=== PATIENT | female | born 1970 | race Caucasian/White ===

== ENCOUNTER 2019-01-02 08:58 | Emergency (ER) | payer BC ==
[2019-01-02 09:24] VITALS: BP 124/90
--- NOTE | 2019-01-02 09:34 | UC ---
Hypertension HPI - HPI Summary HPI Summary: 48-year-old female who was playing with her granddaughter last evening when she took her blood pressure and it was 165's systolic she can't remember the diastolic. She rechecked it again this morning and it was 170/100 in her left arm, and her insisted she be rechecked today. She has no history of hypertension. She denies any symptoms of illness. No weakness, no chest pain, no difficulty breathing, no difficulty speaking. Her last appointment with her primary care provider was one year ago when she states everything was normal at that time. - History of Current Complaint Chief Complaint: UCGeneralIllness Stated Complaint: BP ISSUE Time Seen by Provider: 01/02/19 09:07 Hx Obtained From: Patient Hx Last Menstrual Period: iud ?: No Onset/Duration: Other - Patient rechecked it last evening and this morning and it was still elevated. Reported Blood Pressure Prior To Arrival:: see above notes. Aggravating Factor(s): Nothing Alleviating Factor(s): Nothing Associated Signs And Symptoms: Positive: Negative - Allergies/Home Medications Allergies/Adverse Reactions: Allergies Allergy/AdvReac Type Severity Reaction Status Date / Time No Known Allergies Allergy Verified 01/02/19 09:09 PMH/Surg Hx/FS Hx/Imm Hx Previously Healthy: Yes - Surgical History Surgical History: Yes Surgery Procedure, Year, and Place: gall bladder. 2 c- sections - Family History Known Family History: Positive: Non-Contributory - Social History Alcohol Use: Rare Substance Use Type: None Smoking Status (MU): Light Every Day Tobacco Smoker Type: Cigarettes Amount Used/How Often: quit 2000 Length of Time of Smoking/Using Tobacco: 10 years Review of Systems All Other Systems Reviewed And Are Negative: Yes Is Patient Immunocompromised?: No Physical Exam Triage Information Reviewed: Yes Appearance: Well-Appearing, No Pain Distress, Well-Nourished Vital Signs: Initial Vital Signs Temp 98 F 01/02/19 09:06 Pulse 74 01/02/19 09:06 Resp 16 01/02/19 09:06 BP 185/91 01/02/19 09:06 Pulse Ox 100 01/02/19 09:06 Vital Signs Reviewed: Yes Eye Exam: Normal Eyes: Positive: Other: - PERRLA, EOMI. Ophthalmoscopic exam normal ENT: Positive: Hearing grossly normal, Pharynx normal, TMs normal, Uvula midline Neck: Positive: Supple, Nontender, No Lymphadenopathy Respiratory: Positive: Lungs clear, Normal breath sounds, No respiratory distress, No accessory muscle use Cardiovascular: Positive: RRR, No Murmur, Pulses Normal, Brisk Capillary Refill , Other: - No carotid bruits Abdominal Exam: Normal Abdomen Description: Positive: Nontender, No Organomegaly, Soft. Negative: CVA Tenderness (R), CVA Tenderness (L) Bowel Sounds: Positive: Present Musculoskeletal: Positive: Strength Intact, ROM Intact, No Edema, Other: - Good arm and leg strength against resistance. Neurological: Positive: Alert, Muscle Tone Normal, Other: - Cranial nerves II through XII are intact, reflexes +2 at the knee, negative eye drift, normal dystidiokinesis, good finger to nose bilaterally, Romberg negative, good heel-to -toe forward and backward, good [id number]. Psychological Exam: Normal Skin Exam: Normal Hypertension Course/Dx - Course Course Of Treatment: I rechecked her manual blood pressure left arm, large cuff, sitting with feet flat on the floor and it was 124/90. She is to recheck her blood pressure 3 times a week and follow-up with her primary care provider. If she develops any weakness, chest pain, difficulty breathing, difficulty speaking she is to go to the emergency room via ambulance. Patient is in agreement with this. If she has an elevated blood pressure when she rechecks her blood pressure with her home cuff she is to find another source for manual blood pressure and have her rechecked in record that for her primary care provider. - Differential Dx/Diagnosis Provider Diagnosis: Elevated blood pressure reading Discharge - Sign-Out/Discharge Documenting (check all that apply): Patient Departure All imaging exams completed and their final reports reviewed: No Studies - Discharge Plan Condition: Good Disposition: HOME Patient Education Materials: Heart Healthy Diet (DC) Referrals: Werner Lloyd MD [Primary Care Provider] - Additional Instructions: Take your blood pressure 3 times a week and record it and follow-up with your primary care provider if it continues to be elevated. Remember to sit in a chair, relax and keep your feet flat on the floor when you take your blood pressure. If her blood pressure cuff at home continues to show no elevated blood pressure, recheck it with a different cuff and when you see your primary care provider take your machine in and have it compared to a manual blood pressure at the office. Decrease salt in diet, increase fluids, increase exercise. Go to the emergency room if you develop any weakness, difficulty breathing, chest pain, headache, speaking or any further concerns. - Billing Disposition and Condition Condition: GOOD Disposition: Home
== END 2019-01-02 09:30 | disposition home or self-care (01) ==
LOC: UCEAST 08:58
DX: R03.0 Elevated blood-pressure reading, without diagnosis of hypertension (principal); F17.210 Nicotine dependence, cigarettes, uncomplicated; Z90.49 Acquired absence of other specified parts of digestive tract
CPT/HCPCS: 99211; G0463